=== PATIENT | female | born 1995 | race Caucasian/White ===

== ENCOUNTER 2022-07-26 05:04 | Emergency (ER) | payer OTHER ==
[~2022-07-26] VITALS: Ht 157.5 cm; Wt 49.4 kg
[2022-07-26 08:13] LABS: CLARITY URINE CLEAR (CLEAR); COLOR URINE YELLOW (YELLOW); KETONES URINE NEGATIVE (NEGATIVE); LEUKOCYTE ESTERASE URINE 3+ (NEGATIVE); NITRITE URINE NEGATIVE (NEGATIVE); OCCULT BLOOD URINE 3+ (NEGATIVE); PROTEIN URINE NEGATIVE (NEGATIVE); SPECIFIC GRAVITY URINE 1.002 (1.005-1.030); UROBILINOGEN URINE 0.2 E.U./dL (0.2-1.0)
[2022-07-26] MEDS ORDERED: PYR200 MT (08:20)
[2022-07-26] MEDS ORDERED: NITR-87 MT (08:20)
[2022-07-26 10:13] VITALS: BP 127/86
== END 2022-07-26 10:14 | disposition home or self-care (01) ==
LOC: ER 05:04
DX: N39.0 Urinary tract infection, site not specified (principal)
CPT/HCPCS: 81003; 81025; 99283